=== PATIENT | female | born 1980 | race African-American/Black ===

== ENCOUNTER → 2017-04-20 13:18 | Outpatient (CLI) | payer MEDICARE ==
[2016-04-10 10:50] VITALS: BMI 53.7
[~2017-04-20 13:18] MED LIST: ADVIL200 MG PO; DIFLUCAN150 MG PO; HYDROCHLOROTH12.5 M1 PO; HYDROCODONE-APA1 TAB PO; MOBIC7.5 MG PO; NORVASC2.5 MG PO; PRINIVIL20 MG PO; RISPERDAL0.5 MG PO; TRAZODONE HCL50 MG PO; ZOCOR20 MG PO
== END | disposition home or self-care (01) ==
LOC: D.US 04-19 10:00
DX: N93.8 Other specified abnormal uterine and vaginal bleeding (principal)

== ENCOUNTER → 2018-03-12 08:46 | Outpatient (CLI) | payer MEDICARE ==
[2016-04-10 10:50] VITALS: BMI 53.7
== END | disposition home or self-care (01) ==
LOC: D.US 03-07 10:00
DX: R10.11 Right upper quadrant pain (principal)

== ENCOUNTER 2018-04-11 07:21 | Day surgery (SDC) | payer MEDICARE ==
[~2018-04-11] VITALS: Ht 172.7 cm; Wt 140.2 kg
--- NOTE | ~2018-04-11 | OP ---
PATIENT NAME: LORY VIZCARRA MEDICAL RECORD: [id number] :84 LOCATION:D.OPS ADMISSION DATE: SURGEON: BRODIE DAVENPORT MD DATE OF OPERATION: 04/11/2018 PREOPERATIVE DIAGNOSES: 1. Gallstones. 2. Hypertension. 3. Diabetes mellitus. 4. Morbid obesity. POSTOPERATIVE DIAGNOSES: 1. Gallstones. 2. Hypertension. 3. Diabetes mellitus. 4. Morbid obesity. PROCEDURE: Laparoscopic cholecystectomy. SURGEON: Brodie Davenport MD SCHEDULE SUPERVISOR: Rosario Remy APRN REPORT OF PROCEDURE: The patient's abdomen was prepped and draped in sterile fashion. A cutdown was made on the superior aspect of the umbilicus, 0 Vicryls were placed on the fascia bilaterally and the fascia was incised with a 15-blade. I then bluntly entered the peritoneal cavity and placed a 12-mm Imani port. Under direct visualization, a 5-mm trocar was placed in the epigastrium and 2 more 5-mm trocars were placed in the right subcostal region. The gallbladder was grasped and elevated. There is some mild inflammatory adhesions present, but no sign of any acute inflammation. The cystic artery and cystic duct were dissected free. These were clipped proximally and distally and ligated in standard fashion. Upon grasping the gallbladder, the gallbladder clip fell off and there was spillage of bile. A new clip was placed times 2 and this stopped any leakage. The gallbladder was taken off the liver bed and placed up to the right upper quadrant. At this point, the right upper quadrant was irrigated out with normal saline and any bleeding was then treated with electrocautery. The ports and insufflation were then removed and the gallbladder was placed into an Endo Catch bag and removed through the umbilicus. The umbilical fascia was closed with interrupted 0 Vicryls times 3. The wounds were then irrigated out with normal saline and infused with 10 mL of 0.25% Marcaine with epinephrine. The skin incisions were all closed with subcutaneous 5-0 Monocryl and dressed appropriately. COMPLICATIONS: None. CONDITION: Stable. ANESTHESIA: General endotracheal and local. BLOOD LOSS: Minimal. TRANSINT:[id number] Voice Confirmation ID: [id number] DOCUMENT ID: [id number] OPERATIVE REPORT [id number] LORY VIZCARRA Gene BRODIE DAVENPORT MD at 1031 CC: ADRIENNE MALIN DO [id number] DICTATION DATE: 04/11/18 1042 BANQUET COOK: 04/11/18 1518 [facility] 04/11/18 [id number] [place] [address]
[2018-04-11 08:07] LABS: BASOPHILS 0.3 % (0-2); EOSINOPHILS 0.6 % (0-7); IMMATURE GRANULOCYTES 0.3 % (0-5); LYMPHOCYTES 39.9 % (15-50); MCH 30.5 pg (26.0-34.0); MCHC 34.2 g/dL (31.0-37.0); MCV 89.2 fL (80.0-100.0); MONOCYTES 9.6 % (2-11); NEUTROPHILS 49.3 % (40-80); PLATELET COUNT 192 10x3/uL (130-400); RBC 4.26 10x6/uL (4.00-5.40); RDW 13.9 % (11.5-14.5); WBC 6.8 10x3/uL (4.8-10.8)
[2018-04-11 08:19] LABS: HCG SERUM NEGATIVE (NEGATIVE)
[2018-04-11 08:21] LABS: CARBON DIOXIDE 24.8 mmol/L (21.0-32.0); POTASSIUM - SERUM 3.8 mmol/L (3.5-5.1)
[2018-04-11 09:08] VITALS: BP 121/78; Ht 172.7 cm; Wt 140.2 kg
[2018-04-11] MEDS ORDERED: HYDROCODONE-APA1 TAB PO (10:39)
== END 2018-04-11 12:55 | disposition home or self-care (01) ==
LOC: D.OPS 07:21 → D.PAN 09:45 → D.OPS 09:45
PROVIDERS: Anesthesiology; Surgery
DX: K80.80 Other cholelithiasis without obstruction (principal); I10 Essential (primary) hypertension; E66.01 Morbid (severe) obesity due to excess calories; E11.9 Type 2 diabetes mellitus without complications; Z68.42 Body mass index [BMI] 45.0-49.9, adult; Z01.812 Encounter for preprocedural laboratory examination

== ENCOUNTER → 2019-04-14 09:59 | Outpatient (CLI) | payer MEDICARE ==
[2018-04-11 09:08] VITALS: BMI 47.0
== END | disposition home or self-care (01) ==
LOC: D.US 09:59
PROVIDERS: ATTEND Family Medicine
DX: N93.9 Abnormal uterine and vaginal bleeding, unspecified (principal)